=== PATIENT | female | born 1935 ===

== ENCOUNTER 2017-03-10 20:35 | Inpatient (IN) | payer OTHER ==
--- NOTE | 2017-03-10 21:40 | C.PDOC ---
History Of Present Illness 81 year old female is brought to the ED by ambulance accompanied by daughter for evaluation after syncopal episode at home. Patient admits she felt weak and slightly slipped on to the floor. As per daughter patient was standing in the kitchen washing dishes when she suddenly felt weak and passed out. Daughter found the patient unconscious on the floor, according to her it lasted only a few seconds and patient woke up fully conscious. Patient reports having cold like symptoms for the past few days associated with nasal congestion, cough, and today presents c/o mild nausea, weakness and a mild headache. Otherwise, Patient denies head injury, severe headache, fever, dizziness, visual changes, focal deficits, CP, palpitations, abdominal pain, vomit diarrhea incontinence. Time Seen by Provider: 03/10/17 21:14 Chief Complaint (Nursing): Cough, Cold, Congestion History Per: Patient, EMS, Family History/Exam Limitations: no limitations Onset/Duration Of Symptoms: Hrs Current Symptoms Are (Timing): Gone Recent travel outside of the [place]: No Additional History Per: Patient, Family Past Medical History Reviewed: Historical Data, Nursing Documentation, Vital Signs Vital Signs: Last Vital Signs Temp 97.8 F 03/10/17 23:19 Pulse 100 H 03/10/17 23:19 Resp 18 03/10/17 23:19 BP 157/77 H 03/10/17 23:19 Pulse Ox 96 03/10/17 23:38 - Medical History PMH: Diabetes, HTN Surgical History: Appendectomy - [facility] Procedures CATARAC PHACOEMULS/ASPIR (09/13/12) INSERT LENS AT CATAR EXT (09/13/12) Family History: States: Unknown Family Hx - Social History Hx Alcohol Use: No Hx Substance Use: No - Immunization History Hx Tetanus Toxoid Vaccination: No Hx Influenza Vaccination: No Hx Pneumococcal Vaccination: No Review Of Systems Constitutional: Negative for: Fever, Chills Eyes: Negative for: Vision Change Cardiovascular: Negative for: Chest Pain, Palpitations Respiratory: Negative for: Shortness of Breath Gastrointestinal: Positive for: Nausea. Negative for: Vomiting, Abdominal Pain Genitourinary: Negative for: Incontinence Skin: Negative for: Rash Neurological: Positive for: Weakness, Headache (Mild). Negative for: Numbness, Change in Speech, Dizziness Physical Exam - Physical Exam Appears: Non-toxic, No Acute Distress Skin: Normal Color, Warm, Dry Head: Normacephalic Eye(s): bilateral: Normal Inspection, PERRL, EOMI Nose: No Discharge, No Deformity Oral Mucosa: Moist, No Drooling Neck: Normal ROM, Trachea Midline, Supple Chest: Symmetrical Cardiovascular: Rhythm Regular, No Murmur Respiratory: Normal Breath Sounds, No Rales, No Rhonchi, No Wheezing Gastrointestinal/Abdominal: Soft, No Tenderness, No Guarding, No Rebound Extremity: Normal ROM, No Calf Tenderness, No Deformity, No Swelling Neurological/Psych: Oriented x3, Normal Speech, Normal Cognition, Normal Motor, Normal Sensation, Other (No focal deficits ) ED Course And Treatment - Laboratory Results Result Diagrams: 03/10/17 22:02 03/10/17 22:02 ECG: Interpreted By Me (and ED attending) Interpretation Of ECG: SR@95/min, NAD, prolong QT, no acute ST-T changes. O2 Sat by Pulse Oximetry: 96 (On RA) Pulse Ox Interpretation: Normal - Radiology CXR: Interpreted by Me, Viewed By Me CXR Interpretation: Yes: No Acute Disease - CT Scan/US CT head w/o contrast Other Rad Studies (CT/US): Radiology Report Reviewed CT/US Interpretation: [facility]. [facility] Division of Radiology. [address] [place] [address]. Tel. no. . . . Patient Name: HERBER LAWRENCE . Pt. Address: [address] [place] [address] Rec #: [id number]. [place] [address]: Vera Nogueira. Pt Order Location: [facility] : 1935 Female Age: 81 Order #: [id number]. Reason for exam: AMS. . . . . . CT Scan. . . HEAD W/O CONTRAST Exam Date: 03/10/17. . This imaging exam was performed at [facility]. EXAM: CT Head Without Intravenous Contrast. . CLINICAL HISTORY: 81 years old, female; Signs and symptoms; Altered mental status/memory loss;. Confusion or disorientation; Additional info: AMS. . TECHNIQUE: Axial computed tomography images of the head/brain without intravenous. contrast. All CT scans at this facility use one or more dose reduction. techniques, viz. : automated exposure control; ma/kV adjustment per patient size. (including targeted exams where dose is matched to indication; i.e. head); or. iterative reconstruction technique. Coronal and sagittal reformatted images were created and reviewed. . COMPARISON: No relevant prior studies available. . . FINDINGS: Brain: No acute intracranial hemorrhage. Age-appropriate periventricular. white matter disease. No edema. Ventricles: Age-appropriate ventriculomegaly. Bones: No acute displaced fracture. Sinuses: Unremarkable as visualized. No acute sinusitis. Mastoid air cells: Unremarkable as visualized. No mastoid effusion. . IMPRESSION: No acute intracranial hemorrhage, or suspicious mass effect. . . Dictated By: Luisa Green MD. Dictated Date/Time: 03/10/172237. Signed By: Luisa Green MD. Date Signed: 03/10/172237. Transcribed By: [facility]. Transcribe Date/Time: 03/10/172237. HUBER/CAROL Progress Note: Pt was OBS in ED for 2 hours and remained hemdoynamicaly stable. On re-eval, pt unchanged. Case discussed with and admission arranged to tele with Dx: Syncope. Disposition - Disposition Disposition: HOSPITALIZED Disposition Time: 23:17 Condition: STABLE - Clinical Impression Clinical Impression: Syncope - PA / WOOD ROOM HAND / Resident Statement MD/DO has reviewed & agrees with the documentation as recorded. - Scribe Statement The provider has reviewed the documentation as recorded by the Scribe Fareed Vargas All medical record entries made by the Scribe were at my direction and personally dictated by me. I have reviewed the chart and agree that the record accurately reflects my personal performance of the history, physical exam, medical decision making, and the department course for this patient. I have also personally directed, reviewed, and agree with the discharge instructions and disposition.
[2017-03-10] MEDS ORDERED: Lactated Ringer's 1,000 ML IV STA (21:49)
[2017-03-10 22:07] LABS: BASO # 0.1 K/uL (0.0-0.2); BASO % 1.2 % (0.0-2.0); EOS # 0.1 K/uL (0.0-0.7); EOS % 0.5 % (0.0-4.0); HEMATOCRIT 40.9 % (34.0-47.0); LYMPH # 1.3 K/uL (1.0-4.3); LYMPH % 11.6 % (20.0-40.0); MEAN CELL VOLUME 89.1 fL (81.0-99.0); MEAN CORPUSCULAR HEMOGLOBIN 29.6 pg (27.0-31.0); MEAN CORPUSCULAR HGB CONC 33.2 g/dL (33.0-37.0); MEAN PLATELET VOLUME 10.7 fL (7.2-11.7); MONO # 0.6 K/uL (0.0-0.8); MONO % 5.1 % (0.0-10.0); NRBC % 0.1 % (0.0-2.0); RED CELL DISTRIBUTION WIDTH 14.2 % (11.5-14.5); WHITE BLOOD COUNT 11.2 K/uL (4.8-10.8)
[2017-03-10 22:15] LABS: RBC URINE 1 /hpf (0-3); TRANSITIONAL EPITHIAL < 1 /hpf (0-3); URINE BACTERIA OCC (<OCC); URINE BILIRUBIN NEGATIVE (NEGATIVE); URINE BLOOD NEGATIVE (NEGATIVE); URINE COLOR Yellow (YELLOW); URINE GLUCOSE (UA) NORMAL (Normal); URINE KETONE TRACE mg/dL (NEGATIVE); URINE LEUKOCYTE ESTERASE 1+ Leu/uL (Negative); URINE PROTEIN NEGATIVE (NEGATIVE); URINE UROBILINOGEN NORMAL mg/dL (0.2-1.0); WBC URINE 11 /hpf (0-5)
[2017-03-10 22:16] LABS: VENOUS BLOOD GAS BASE EXCESS -7.5 mmol/L (0.0-2.0); VENOUS BLOOD GAS PCO2 37 mmHg (40-60)
[2017-03-10 22:30] LABS: ALKALINE PHOSPHATASE 103 U/L (38-126); ALT/SGPT 35 U/L (9-52); AST/SGOT 38 U/L (14-36); BILIRUBIN,TOTAL 1.3 mg/dL (0.2-1.3); CALCIUM 8.4 mg/dl (8.6-10.4); CARBON DIOXIDE 24 mmol/L (22-30); CHLORIDE 97 mmol/L (98-107); GFR AFRICAN-AMERICAN > 60; GLUCOSE,RANDOM 180 mg/dL (65-105); POTASSIUM 3.9 mmol/L (3.6-5.2); SODIUM 132 mmol/L (132-148); TOTAL PROTEIN 8.6 g/dL (6.3-8.3)
[2017-03-10 22:37] LABS: BLOOD UREA NITROGEN 13 mg/dL (7-17)
--- NOTE | 2017-03-10 22:39 | CT ---
EXAM: CT Head Without Intravenous Contrast CLINICAL HISTORY: 81 years old, female; Signs and symptoms; Altered mental status/memory loss; Confusion or disorientation; Additional info: AMS TECHNIQUE: Axial computed tomography images of the head/brain without intravenous contrast. All CT scans at this facility use one or more dose reduction techniques, viz.: automated exposure control; ma/kV adjustment per patient size (including targeted exams where dose is matched to indication; i.e. head); or iterative reconstruction technique. Coronal and sagittal reformatted images were created and reviewed. COMPARISON: No relevant prior studies available. FINDINGS: Brain: No acute intracranial hemorrhage. Age-appropriate periventricular white matter disease. No edema. Ventricles: Age-appropriate ventriculomegaly. Bones: No acute displaced fracture. Sinuses: Unremarkable as visualized. No acute sinusitis. Mastoid air cells: Unremarkable as visualized. No mastoid effusion. IMPRESSION: No acute intracranial hemorrhage, or suspicious mass effect.
--- NOTE | 2017-03-11 01:34 | CP.PCM.HP ---
History of Present Illness - History of Present Illness History of Present Illness: CC: syncopal episode Patient is an 81 y/o F with PMHx of DM, HTN, HLD who presents today for syncopal episode. Patient was feeling fine during the day and then became dizzy for about 10-15 minutes while doing the dishes. Patient started to slump toward the ground and lost consciousness for a few seconds but daughter caught her fall. Patient did not hit her head. Daughter said that patient was unconscious for only a few seconds after which she was not confused. She was not incontinent of urine or feces. After the syncopal episode patient had some nausea. Daughter immediately called the ambulance. Patient says this has never happened to her before. In the past few days patient has had a cold and been taking an OTC decongestant and Tylenol. She has a cough with no phlegm and no sore throat. She also admits to nasal congestion. She has had no fevers. Patient also denies headache, shortness of breath, abdominal pain, vomiting, constipation, or diarrhea. Patient denies problems with urinating. Currently patient denies any dizziness and says she is feeling better. PMH: DM, HTN, HLD PSH: Appendectomy (at age 18), Cataracts Family History: HTN, mother had possible [place] Medications: Losartan, Janumet, Atorvastatin, ASA Allergies: Penicillin Social: Denies tobacco, alcohol, drug use. Patient lives with daughter, but is able to perform ADLs alone Present on Admission - Present on Admission Any Indicators Present on Admission: No History of DVT/PE: No History of Uncontrolled Diabetes: No Urinary Catheter: No Decubitus Ulcer Present: No Review of Systems - Constitutional Constitutional: absent: Fatigue, Headache - EENT Eyes: absent: Blurred Vision - Cardiovascular Cardiovascular: Syncope. absent: Chest Pain, Leg Edema, Palpitations - Respiratory Respiratory: absent: Cough, Wheezing, Stridor - Gastrointestinal Gastrointestinal: Nausea. absent: Constipation, Diarrhea, Vomiting - Genitourinary Genitourinary: absent: Difficulty Urinating, Dysuria, Hematuria - Musculoskeletal Musculoskeletal: absent: Numbness, Tingling - Integumentary Integumentary: absent: Rash - Neurological Neurological: Syncope. absent: Dizziness - Hematologic/Lymphatic Hematologic: absent: Easy Bleeding, Easy Bruising Past Patient History - Past Social History Smoking Status: Never Smoked - CARDIAC Hx Hypertension: Yes - ENDOCRINE/METABOLIC Hx Diabetes Mellitus Type 2: Yes - PSYCHIATRIC Hx Substance Use: No - SURGICAL HISTORY Hx Appendectomy: Yes Meds Allergies/Adverse Reactions: Allergies Allergy/AdvReac Type Severity Reaction Status Date / Time Penicillins Allergy Verified 03/10/17 20:44 Physical Exam - Constitutional Appears: Well, Non-toxic, No Acute Distress - Head Exam Head Exam: ATRAUMATIC, NORMAL INSPECTION, NORMOCEPHALIC - Eye Exam Eye Exam: EOMI, Normal appearance - ENT Exam ENT Exam: Mucous Membranes Moist - Respiratory Exam Respiratory Exam: Clear to Auscultation Bilateral, NORMAL BREATHING PATTERN. absent: Rales, Rhonchi, Wheezes, Respiratory Distress, Stridor - Cardiovascular Exam Cardiovascular Exam: Tachycardia, REGULAR RHYTHM, +S1, +S2 - GI/Abdominal Exam GI & Abdominal Exam: Normal Bowel Sounds, Soft. absent: Tenderness - Extremities Exam Extremities exam: Positive for: normal inspection. Negative for: pedal edema, tenderness - Neurological Exam Neurological exam: Alert, Oriented x3 - Psychiatric Exam Psychiatric exam: Normal Affect, Normal Mood - Skin Skin Exam: Intact, Normal Color, Warm Results - Vital Signs Recent Vital Signs: Last Vital Signs Temp 97.8 F 03/10/17 23:19 Pulse 100 H 03/10/17 23:19 Resp 18 03/10/17 23:19 BP 157/77 H 03/10/17 23:19 Pulse Ox 96 03/10/17 23:38 - Labs Result Diagrams: 03/10/17 22:02 03/10/17 22:02 Labs: Laboratory Results - last 24 hr 03/10/17 03/10/17 03/10/17 22:02 22:02 22:02 WBC 11.2 H RBC 4.58 Hgb 13.6 Hct 40.9 MCV 89.1 D MCH 29.6 MCHC 33.2 RDW 14.2 Plt Count 230 MPV 10.7 Neut % (Auto) 81.6 H Lymph % (Auto) 11.6 L [place] % (Auto) 5.1 Eos % (Auto) 0.5 Baso % (Auto) 1.2 Neut # 9.1 H Lymph # 1.3 [place] # 0.6 Eos # 0.1 Baso # 0.1 PT 11.0 INR 1.0 APTT 25 pO2 VBG pH VBG pCO2 VBG HCO3 VBG Total CO2 VBG O2 Sat (Calc) VBG Base Excess VBG Potassium Glucose Lactate FiO2 Crit Value Called To Crit Value Called By Crit Value Read Back Blood Gas Notified Time Sodium Potassium Chloride Carbon Dioxide Anion Gap BUN Creatinine Est GFR ( Amer) Est GFR (Non-Af Amer) Random Glucose Calcium Total Bilirubin AST ALT Alkaline Phosphatase Troponin I Total Protein Albumin Globulin Albumin/Globulin Ratio Venous Blood Potassium Urine Color Yellow Urine Clarity Clear Urine pH 6.0 Ur Specific [place] 1.013 Urine Protein Negative Urine Glucose (UA) Normal Urine Ketones Trace Urine Blood Negative Urine Nitrate Negative Urine Bilirubin Negative Urine Urobilinogen Normal Ur Leukocyte Esterase 1+ H Urine WBC (Auto) 11 H Urine RBC (Auto) 1 Ur Squamous Epith Cells 3 Ur Transition Epith Cell < 1 Urine Bacteria Occ H 03/10/17 03/10/17 22:02 22:10 WBC RBC Hgb Hct MCV MCH MCHC RDW Plt Count MPV Neut % (Auto) Lymph % (Auto) [place] % (Auto) Eos % (Auto) Baso % (Auto) Neut # Lymph # [place] # Eos # Baso # PT INR APTT pO2 20 L VBG pH 7.30 L VBG pCO2 37 L VBG HCO3 17.1 VBG Total CO2 19.3 L VBG O2 Sat (Calc) 47.0 VBG Base Excess -7.5 L VBG Potassium 1.9 L* Glucose 132 H Lactate 1.3 FiO2 21.0 Crit Value Called To Dr goins Crit Value Called By Naun caraballo Crit Value Read Back Y Blood Gas Notified Time 2215 Sodium 132 148.0 Potassium 3.9 Chloride 97 L 121.0 H Carbon Dioxide 24 Anion Gap 15 BUN 13 Creatinine 0.9 Est GFR ( Amer) > 60 Est GFR (Non-Af Amer) > 60 Random Glucose 180 H Calcium 8.4 L Total Bilirubin 1.3 AST 38 H ALT 35 Alkaline Phosphatase 103 Troponin I < 0.0120 Total Protein 8.6 H Albumin 4.4 Globulin 4.2 H Albumin/Globulin Ratio 1.0 Venous Blood Potassium 1.9 L* Urine Color Urine Clarity Urine pH Ur Specific [place] Urine Protein Urine Glucose (UA) Urine Ketones Urine Blood Urine Nitrate Urine Bilirubin Urine Urobilinogen Ur Leukocyte Esterase Urine WBC (Auto) Urine RBC (Auto) Ur Squamous Epith Cells Ur Transition Epith Cell Urine Bacteria Assessment & Plan - Assessment and Plan (Free Text) Assessment: Syncopal episode Head CT: no acute intracranial hemmorhage or suspicious mass effect f/u TSH F/U ECHO F/U carotid dopplers Leukocytosis WBC: 11.2 UA: 1+ leuk esterase, 11 wbc, occasional bacteria f/u urine and blood culture HTN Losartan at home, please confirm dose in am continue to monitor DM Janumet at home, please confirm dose in am accuchecks f/u HgA1C HLD Atorvastatin at home, please confirm dose in am f/u lipid panel Prophylaxis DVT: SCDs GI: Pepcid 20mg po daily
--- NOTE | 2017-03-11 08:26 | RAD ---
HISTORY: r/o infiltrates COMPARISON: No prior. TECHNIQUE: Chest PA and lateral FINDINGS: LUNGS: 05/18/2012 PLEURA: No significant pleural effusion identified. No pneumothorax apparent. CARDIOVASCULAR: Heart size normal. The relative prominence of the aortic knob is similar. OSSEOUS STRUCTURES: Bilateral glenohumeral hypertrophic arthrosis left greater than right. Scoliosis -unchanged VISUALIZED UPPER ABDOMEN: Normal. OTHER FINDINGS: None. IMPRESSION: No active disease.
[2017-03-11 08:29] LABS: BASO # 0.1 K/uL (0.0-0.2); BASO % 0.9 % (0.0-2.0); EOS # 0.1 K/uL (0.0-0.7); EOS % 0.9 % (0.0-4.0); HEMATOCRIT 37.5 % (34.0-47.0); LYMPH # 1.8 K/uL (1.0-4.3); LYMPH % 28.5 % (20.0-40.0); MEAN CELL VOLUME 88.2 fL (81.0-99.0); MEAN CORPUSCULAR HEMOGLOBIN 30.3 pg (27.0-31.0); MEAN CORPUSCULAR HGB CONC 34.3 g/dL (33.0-37.0); MONO # 0.6 K/uL (0.0-0.8); MONO % 9.1 % (0.0-10.0); WHITE BLOOD COUNT 6.2 K/uL (4.8-10.8)
[2017-03-11 08:42] LABS: ALB/GLOB RATIO 0.9 (1.0-2.1); ALKALINE PHOSPHATASE 86 U/L (38-126); ALT/SGPT 37 U/L (9-52); AST/SGOT 24 U/L (14-36); BILIRUBIN,TOTAL 0.7 mg/dL (0.2-1.3); BLOOD UREA NITROGEN 11 mg/dL (7-17); CALCIUM 8.3 mg/dl (8.6-10.4); CARBON DIOXIDE 29 mmol/L (22-30); CHLORIDE 98 mmol/L (98-107); CHOLESTEROL 137 mg/dL (0-199); GFR AFRICAN-AMERICAN > 60; GLUCOSE,RANDOM 119 mg/dL (65-105); MAGNESIUM 1.6 mg/dL (1.6-2.3); POTASSIUM 3.3 mmol/L (3.6-5.2); SODIUM 131 mmol/L (132-148); TOTAL PROTEIN 8.2 g/dL (6.3-8.3)
[2017-03-11 09:07] LABS: PHOSPHOROUS 2.5 mg/dL (2.5-4.5)
[2017-03-11 09:09] LABS: THYROID STIMULATING HORMONE 1.29 mIU/L (0.46-4.68)
--- NOTE | 2017-03-11 13:49 | VASCLAB ---
PROCEDURE: HISTORY: syncopal episode COMPARISON: None available. TECHNIQUE: Grayscale and duplex Doppler evaluation of the cervical carotid and vertebral arteries were performed. The common carotid, carotid bifurcations and cervical Internal Carotid Artery (ICA) and proximal External Carotid Artery (ECA) were evaluated. The vertebral arteries were evaluated for gross patency and flow direction. Report prepared by Sanjay Manzanares, BS, RVT FINDINGS: RIGHT CAROTID ARTERIES: 1. Common Carotid Artery: No significant focal plaque formation of the right common carotid artery. Maximum Peak Systolic velocity: 83 cm/sec: End-diastolic velocity 22 cm/sec. 2. Carotid Bifurcation: Homogeneous plaque formation. Maximum Peak Systolic velocity: 119 cm/sec: End-diastolic velocity 28 cm/sec. 3. Internal Carotid Artery: Mild plaque formation of the right proximal proximal ICA which does not results in a hemodynamically significant stenosis. Plaque description: Homogeneous 3.1. Proximal Segment: Peak systolic velocity 141 cm/sec: End-diastolic velocity 38 cm/sec - % stenosis 16-49% 3.2. Middle Segment: Peak systolic velocity 110 cm/sec: End-diastolic velocity 30 cm/sec - % stenosis 0-15% 3.3. Distal Segment: Peak systolic velocity 87 cm/sec: End-diastolic velocity 24 cm/sec - % stenosis 0-15% 4. External Carotid Artery: No significant focal plaque formation. Peak systolic velocity 219 cm/sec 5. ICA/CCA Ratio: 1.7 LEFT CAROTID ARTERIES: 1. Common Carotid Artery: No significant focal plaque formation of the left common carotid artery. Maximum Peak Systolic velocity: 99 cm/sec: End-diastolic velocity 23 cm/sec. 2. Carotid Bifurcation: Homogeneous plaque formation. Maximum Peak Systolic velocity: 121 cm/sec: End-diastolic velocity 24 cm/sec. 3. Internal Carotid Artery: Moderate plaque formation of the left proximal ICA which results in hemodynamically significant stenosis. Plaque description: Homogeneous 3.1. Proximal Segment: Peak systolic velocity 203 cm/sec: End-diastolic velocity 36 cm/sec - % stenosis 50-60% 3.2. Middle Segment: Peak systolic velocity 116 cm/sec: End-diastolic velocity 29 cm/sec - % stenosis 0-15% 3.3. Distal Segment: Peak systolic velocity 111 cm/sec: End-diastolic velocity 29 cm/sec - % stenosis 0-15% 4. External Carotid Artery: No significant focal plaque formation. Peak systolic velocity 222 cm/sec 5. ICA/CCA Ratio: 2.0 VERTEBRAL ARTERIES: 1. Right Vertebral Artery: The right vertebral artery flow direction is antegrade. 2. Left Vertebral Artery: The left vertebral artery flow direction is antegrade. OTHER FINDINGS: 1. Right Brachial Blood pressure: 174 mmHg. 2. Left Brachial Blood pressure: 160 mmHg. IMPRESSION: RIGHT: 16-49% stenosis of the right proximal ICA with minimal hemodynamic significance. LEFT: 50-60% stenosis of the left proximal ICA with mild hemodynamic significance.
[2017-03-11] MEDS ORDERED: Magnesium Sulfate 1 gm in D5W 1 GM/100 ML BAG IVPB ONE (14:00)
[2017-03-11] MEDS ORDERED: Potassium Chloride 20 mEq ER Tab PO ONE (14:00)
--- NOTE | 2017-03-11 15:06 | CP.PCM.PN ---
Subjective - Date & Time of Evaluation Date of Evaluation: 03/11/17 Time of Evaluation: 07:55 - Subjective Subjective: Medicine note ( PGY-1)----> Dr. Fiore's service Patient was seen and examined at bedside. Patient's daughter was at bedside. Patient reports that she is doing well and has no complaints. Patient denies chest pain, SOB, palpitations, nausea, vomiting, dizziness, fever, chills, headache and blurry vision. Objective - Vital Signs/Intake and Output Vital Signs (last 24 hours): Temp Pulse Resp BP Pulse Ox 98.2 F 91 H 20 146/72 96 03/11/17 07:30 03/11/17 07:30 03/11/17 07:30 03/11/17 07:30 03/11/17 07:30 - Medications Medications: Current Medications Famotidine (Pepcid) 20 mg PO DAILY EDIE Last Admin: 03/11/17 10:08 Dose: 20 mg Insulin Aspart (Novolog) 0 unit SC ACHS EDIE PRN Reason: Protocol - Labs Labs: 03/11/17 08:22 03/11/17 08:22 PT 11.0 SECONDS (9.7-12.2) 03/10/17 22:02 INR 1.0 03/10/17 22:02 APTT 25 SECONDS (21-34) 03/10/17 22:02 - Constitutional Appears: Well, No Acute Distress - Head Exam Head Exam: ATRAUMATIC, NORMAL INSPECTION - Eye Exam Eye Exam: EOMI - ENT Exam ENT Exam: Mucous Membranes Moist - Respiratory Exam Respiratory Exam: Clear to Ausculation Bilateral, NORMAL BREATHING PATTERN - Cardiovascular Exam Cardiovascular Exam: REGULAR RHYTHM, +S1, +S2 - GI/Abdominal Exam GI & Abdominal Exam: Soft, Normal Bowel Sounds - Extremities Exam Extremities Exam: Normal Inspection. absent: Calf Tenderness, Pedal Edema - Neurological Exam Neurological Exam: Alert, Awake, Oriented x3 - Psychiatric Exam Psychiatric exam: Normal Affect, Normal Mood - Skin Skin Exam: Normal Color Assessment and Plan (1) Syncope Assessment & Plan: Imaging: Head CT: No acute intracranial hemorrhage or suspicious mass effect Chest X-ray: No active disease Carotid doppler: Right: 16-44% stenosis of the right proximal ICA with minimal hemodynamic significance Left: 50-60% stenois of the left proximal ICA with mild hemodynamic significance F/u orthostatic vitals Labs: Lipid panel: T, Chol: 137, LDL:77, HDL: 45 TSH (3rd generation): 1.29 HgbA1C: 7.3 Status: Acute (2) History of diabetes mellitus Assessment & Plan: HgbA1c: 7.3 Accuchecks Glipizide 2mg PO daily ISS low dose Hypoglycemia protocol Status: Acute (3) History of hypothyroidism Assessment & Plan: TSH (3rd generation): 1.29 Continue home medications: * Levothyroxine 50mcg PO daily Status: Acute (4) History of hypertension Assessment & Plan: Continue home medication: * HCTZ 25mg Po daily * Lorsatan 100mg Po daily ( Held) Status: Acute (5) Prophylactic measure Assessment & Plan: DVT: SCDs GI: Pepcid 20mg po daily All plans and management discussed with Dr. Fiore Status: Acute
[2017-03-11] MEDS: (Novolog) Insulin Aspart, Recombinant 100 u/ml 10 ml vial SC SCH ×2 (17:53→21:33)
--- NOTE | 2017-03-11 21:42 | CARD ---
APPROVED REPORT EXAM: Two-dimensional and M-mode echocardiogram with Doppler and color Doppler. Other Information Quality : GoodRhythm : INDICATION Syncope RISK FACTORS Hypertension Hyperlipidemia Diabetes 2D DIMENSIONS IVSd1.0 (0.7-1.1cm)LVDd3.1 (3.9-5.9cm) PWd0.9 (0.7-1.1cm)LVDs2.0 (2.5-4.0cm) FS (%) 35.6 %LVEF (%)66.6 (>50%) M-Mode DIMENSIONS RVDd1.35 (2.1-3.2cm)Left Atrium (MM)2.84 (2.5-4.0cm) IVSd0.81 (0.7-1.1cm)Aortic Root2.65 (2.2-3.7cm) LVDd3.90 (4.0-5.6cm)Aortic Cusp Exc.1.69 (1.5-2.0cm) PWd0.78 (0.7-1.1cm)FS (%) 51 % LVDs1.93 (2.0-3.8cm)LVEF (%)83 (>50%) Aortic Valve AI P 1/2 [id number] Mitral Valve MV E Owiadrpr31.3cm/sMV A Nrrupwik259.0cm/sE/A ratio0.7 TDI E/Lateral E'0.0E/Medial E'0.0 Tricuspid Valve TR Peak Orowtvui767si/sTR Peak Gr.[id number] LEFT VENTRICLE The left ventricle is normal size. There is normal left ventricular wall thickness. The left ventricular function is normal. The left ventricular ejection fraction is within the normal range. About70% No regional wall motion abnormalities noted. The left ventricular diastolic function is normal. No left ventricle thrombus noted on this study. There is no ventricular septal defect visualized. There is no left ventricular aneurysm. There is no mass noted in the left ventricle. RIGHT VENTRICLE The right ventricle is normal size. There is normal right ventricular wall thickness. The right ventricular systolic function is normal. ATRIA The left atrium size is normal. The right atrium size is normal. The interatrial septum is intact with no evidence for an atrial septal defect. AORTIC VALVE The aortic valve is normal in structure and function. Mild aortic regurgitation is present. There is no aortic valvular stenosis. There is no aortic valvular vegetation. MITRAL VALVE The mitral valve is normal in structure and function. There is no evidence of mitral valve prolapse. There is no mitral valve stenosis. There is trace mitral valve regurgitation noted. TRICUSPID VALVE The tricuspid valve is normal in structure and function. There is mild tricuspid valve regurgitation noted. Estimated PA systolic presure is 35 mm Hg There is no tricuspid valve prolapse or vegetation. There is no tricuspid valve stenosis. PULMONIC VALVE The pulmonary valve is normal in structure and function. There is no pulmonic valvular regurgitation. There is no pulmonic valvular stenosis. GREAT VESSELS The aortic root is normal in size. The ascending aorta is normal in size. The pulmonary artery is normal. The IVC is normal in size and collapses >50% with inspiration. PERICARDIAL EFFUSION The pericardium appears normal. There is no pleural effusion. <Conclusion> Normal LV systolic function. Mild aortic regurgitation.
--- NOTE | 2017-03-11 21:45 | CARD ---
APPROVED REPORT EKG Measurement Heart [id number] <Conclusion> Normal sinus rhythm Nonspecific ST and T wave abnormality Prolonged QT Abnormal ECG
[2017-03-12] MEDS: Levothyroxine 50 MCG TAB PO SCH (06:01)
[2017-03-12 07:01] LABS: ALB/GLOB RATIO 1.1 (1.0-2.1); ALKALINE PHOSPHATASE 80 U/L (38-126); ALT/SGPT 32 U/L (9-52); AST/SGOT 25 U/L (14-36); BILIRUBIN,TOTAL 0.9 mg/dL (0.2-1.3); BLOOD UREA NITROGEN 14 mg/dL (7-17); CALCIUM 8.1 mg/dl (8.6-10.4); CARBON DIOXIDE 30 mmol/L (22-30); CHLORIDE 101 mmol/L (98-107); GFR AFRICAN-AMERICAN > 60; GLUCOSE,RANDOM 170 mg/dL (65-105); MAGNESIUM 1.7 mg/dL (1.6-2.3); PHOSPHOROUS 2.3 mg/dL (2.5-4.5); POTASSIUM 4.2 mmol/L (3.6-5.2); SODIUM 137 mmol/L (132-148)
[2017-03-12 08:11] LABS: BASO % 0.6 % (0.0-2.0); EOS # 0.3 K/uL (0.0-0.7); EOS % 3.7 % (0.0-4.0); HEMATOCRIT 39.2 % (34.0-47.0); LYMPH # 3.2 K/uL (1.0-4.3); LYMPH % 39.6 % (20.0-40.0); MEAN CELL VOLUME 88.7 fL (81.0-99.0); MEAN CORPUSCULAR HEMOGLOBIN 29.8 pg (27.0-31.0); MEAN CORPUSCULAR HGB CONC 33.6 g/dL (33.0-37.0); MONO # 0.7 K/uL (0.0-0.8); MONO % 9.1 % (0.0-10.0); NRBC % 0.5 % (0.0-2.0); WHITE BLOOD COUNT 8.1 K/uL (4.8-10.8)
[2017-03-12] MEDS: (Novolog) Insulin Aspart, Recombinant 100 u/ml 10 ml vial SC SCH ×4 (08:30→21:38)
--- NOTE | 2017-03-12 18:39 | CP.PCM.PN ---
Subjective - Date & Time of Evaluation Date of Evaluation: 03/12/17 Time of Evaluation: 07:35 - Subjective Subjective: Medicine note ( PGY-1)----> Dr. Fiore's service Patient was seen and examined at bedside. Patient reports that she is doing well and has no complaints. Patient denies chest pain, SOB, palpitations, nausea , vomiting, dizziness, fever, chills, headache and blurry vision. Patient is tolerating diet and ambulating. Objective - Vital Signs/Intake and Output Vital Signs (last 24 hours): Temp Pulse Resp BP Pulse Ox 98 F 85 18 116/66 98 03/12/17 15:33 03/12/17 16:00 03/12/17 15:33 03/12/17 15:33 03/12/17 15:33 - Medications Medications: Current Medications Aspirin (Aspirin Chewable) 81 mg PO DAILY [facility] Last Admin: 03/12/17 09:49 Dose: 81 mg Famotidine (Pepcid) 20 mg PO DAILY [facility] Last Admin: 03/12/17 09:51 Dose: 20 mg Glimepiride (Amaryl) 2 mg PO DAILY [facility] Last Admin: 03/12/17 09:49 Dose: 2 mg Hydrochlorothiazide (Hydrodiuril) 25 mg PO DAILY [facility] Last Admin: 03/12/17 09:50 Dose: Not Given Insulin Aspart (Novolog) 0 unit SC [facility] PRN Reason: Protocol Last Admin: 03/12/17 17:37 Dose: 1 unit Levothyroxine Sodium (Synthroid) 50 mcg PO DAILY@0630 [facility] Last Admin: 03/12/17 06:01 Dose: 50 mcg Rosuvastatin Calcium (Crestor) 10 mg PO HS [facility] Last Admin: 03/11/17 21:12 Dose: 10 mg - Labs Labs: 03/12/17 06:42 03/12/17 06:42 PT 11.0 SECONDS (9.7-12.2) 03/10/17 22:02 INR 1.0 03/10/17 22:02 APTT 25 SECONDS (21-34) 03/10/17 22:02 - Constitutional Appears: Well, No Acute Distress - Head Exam Head Exam: ATRAUMATIC - Eye Exam Eye Exam: EOMI, Normal appearance - ENT Exam ENT Exam: Mucous Membranes Moist - Respiratory Exam Respiratory Exam: Clear to Ausculation Bilateral, NORMAL BREATHING PATTERN - Cardiovascular Exam Cardiovascular Exam: REGULAR RHYTHM, +S1, +S2 - GI/Abdominal Exam GI & Abdominal Exam: Soft, Normal Bowel Sounds. absent: Tenderness - Extremities Exam Extremities Exam: Normal Inspection. absent: Calf Tenderness, Pedal Edema - Neurological Exam Neurological Exam: Alert, Awake, Oriented x3 - Psychiatric Exam Psychiatric exam: Normal Affect, Normal Mood - Skin Skin Exam: Normal Color Assessment and Plan (1) Syncope Assessment & Plan: Imaging: Head CT: No acute intracranial hemorrhage or suspicious mass effect Chest X-ray: No active disease Echo: Normal LV systolic dysfunction and mild aortic regurgitation. Ejection fraction is within normal range Carotid doppler: Right: 16-44% stenosis of the right proximal ICA with minimal hemodynamic significance Left: 50-60% stenois of the left proximal ICA with mild hemodynamic significance Orthostatic vitals: (Negative) Labs: Lipid panel: T, Chol: 137, LDL:77, HDL: 45 TSH (3rd generation): 1.29 HgbA1C: 7.3 Status: Acute (2) History of diabetes mellitus Assessment & Plan: HgbA1c: 7.3 Accuchecks Glipizide 2mg PO daily ISS low dose Hypoglycemia protocol Status: Acute (3) History of hypothyroidism Assessment & Plan: TSH (3rd generation): 1.29 Continue home medications: * Levothyroxine 50mcg PO daily Status: Acute (4) History of hypertension Assessment & Plan: Continue home medication: * HCTZ 25mg Po daily * Lorsatan 100mg Po daily ( Held) Status: Acute (5) Prophylactic measure Assessment & Plan: DVT: SCDs GI: Pepcid 20mg po daily All plans and management discussed with Dr. Fiore Status: Acute
[2017-03-13 02:37] VITALS: RESP 20
[2017-03-13] MEDS: Levothyroxine 50 MCG TAB PO SCH (06:15)
[2017-03-13 06:29] LABS: BASO # 0.1 K/uL (0.0-0.2); BASO % 0.9 % (0.0-2.0); EOS # 0.3 K/uL (0.0-0.7); EOS % 4.3 % (0.0-4.0); HEMATOCRIT 38.1 % (34.0-47.0); LYMPH # 2.7 K/uL (1.0-4.3); LYMPH % 37.9 % (20.0-40.0); MEAN CELL VOLUME 87.9 fL (81.0-99.0); MEAN CORPUSCULAR HGB CONC 34.1 g/dL (33.0-37.0); MONO # 0.6 K/uL (0.0-0.8); MONO % 8.2 % (0.0-10.0); NRBC % 0.1 % (0.0-2.0); RED CELL DISTRIBUTION WIDTH 13.7 % (11.5-14.5); WHITE BLOOD COUNT 7.1 K/uL (4.8-10.8)
[2017-03-13 06:37] LABS: ALB/GLOB RATIO 0.9 (1.0-2.1); ALKALINE PHOSPHATASE 83 U/L (38-126); ALT/SGPT 38 U/L (9-52); AST/SGOT 30 U/L (14-36); BILIRUBIN,TOTAL 0.5 mg/dL (0.2-1.3); BLOOD UREA NITROGEN 17 mg/dL (7-17); CALCIUM 8.4 mg/dl (8.6-10.4); CARBON DIOXIDE 30 mmol/L (22-30); CHLORIDE 102 mmol/L (98-107); GFR AFRICAN-AMERICAN > 60; GLUCOSE,RANDOM 163 mg/dL (65-105); MAGNESIUM 1.6 mg/dL (1.6-2.3); PHOSPHOROUS 3.1 mg/dL (2.5-4.5); POTASSIUM 3.9 mmol/L (3.6-5.2); SODIUM 138 mmol/L (132-148); TOTAL PROTEIN 7.9 g/dL (6.3-8.3)
[2017-03-13] MEDS: (Novolog) Insulin Aspart, Recombinant 100 u/ml 10 ml vial SC SCH ×2 (07:10→12:35)
[2017-03-13 08:16] VITALS: PULSE 84
[2017-03-13 08:54] VITALS: BP 127/77; TEMP 98.7; O2SAT 98
--- NOTE | 2017-03-13 14:16 | CP.PCM.DIS ---
Provider - Provider Date of Admission: 03/10/17 23:38 Attending physician: Trell Fiore Jr, MD Time Spent in preparation of Discharge (in minutes): 35 Diagnosis - Discharge Diagnosis (1) Syncope Status: Acute (2) History of diabetes mellitus Status: Acute (3) History of hypothyroidism Status: Acute (4) History of hypertension Status: Acute (5) Prophylactic measure Status: Acute Hospital Course - Lab Results Lab Results: Micro Results 03/10/17 22:30 Blood Blood Culture - Preliminary NO GROWTH AFTER 48 HOURS 03/10/17 22:00 Blood Blood Culture - Preliminary NO GROWTH AFTER 48 HOURS 03/10/17 21:49 Urine Urine Culture - Final No Growth (<1,000 CFU/ML) Most Recent Lab Values WBC 7.1 K/uL (4.8-10.8) 03/13/17 06:11 RBC 4.33 Mil/uL (3.80-5.20) 03/13/17 06:11 Hgb 13.0 g/dL (11.0-16.0) 03/13/17 06:11 Hct 38.1 % (34.0-47.0) 03/13/17 06:11 MCV 87.9 fL (81.0-99.0) 03/13/17 06:11 MCH 30.0 pg (27.0-31.0) 03/13/17 06:11 MCHC 34.1 g/dL (33.0-37.0) 03/13/17 06:11 RDW 13.7 % (11.5-14.5) 03/13/17 06:11 Plt Count 217 K/uL (130-400) 03/13/17 06:11 MPV 11.0 fL (7.2-11.7) 03/13/17 06:11 Neut % (Auto) 48.7 % (50.0-75.0) L 03/13/17 06:11 Lymph % (Auto) 37.9 % (20.0-40.0) 03/13/17 06:11 [place] % (Auto) 8.2 % (0.0-10.0) 03/13/17 06:11 Eos % (Auto) 4.3 % (0.0-4.0) H 03/13/17 06:11 Baso % (Auto) 0.9 % (0.0-2.0) 03/13/17 06:11 Neut # 3.5 K/uL (1.8-7.0) 03/13/17 06:11 Lymph # 2.7 K/uL (1.0-4.3) 03/13/17 06:11 [place] # 0.6 K/uL (0.0-0.8) 03/13/17 06:11 Eos # 0.3 K/uL (0.0-0.7) 03/13/17 06:11 Baso # 0.1 K/uL (0.0-0.2) 03/13/17 06:11 PT 11.0 SECONDS (9.7-12.2) 03/10/17 22:02 INR 1.0 03/10/17 22:02 APTT 25 SECONDS (21-34) 03/10/17 22:02 D-Dimer, Quantitative 438 ng/mlDDU (0-243) H 03/11/17 11:59 pO2 20 mm/Hg (30-55) L 03/10/17 22:10 VBG pH 7.30 (7.32-7.43) L 03/10/17 22:10 VBG pCO2 37 mmHg (40-60) L 03/10/17 22:10 VBG HCO3 17.1 mmol/L 03/10/17 22:10 VBG Total CO2 19.3 mmol/L (22-28) L 03/10/17 22:10 VBG O2 Sat (Calc) 47.0 % (40-65) 03/10/17 22:10 VBG Base Excess -7.5 mmol/L (0.0-2.0) L 03/10/17 22:10 VBG Potassium 1.9 mmol/L (3.6-5.2) L* 03/10/17 22:10 Sodium 148.0 mmol/l (132-148) 03/10/17 22:10 Chloride 121.0 mmol/L (98-107) H 03/10/17 22:10 Glucose 132 mg/dl (65-105) H 03/10/17 22:10 Lactate 1.3 mmol/L (0.7-2.1) 03/10/17 22:10 FiO2 21.0 % 03/10/17 22:10 Crit Value Called To Dr goins 03/10/17 22:10 Crit Value Called By Naun caraballo 03/10/17 22:10 Crit Value Read Back Y 03/10/17 22:10 Blood Gas Notified Time 221403/10/17 22:10 Sodium 138 mmol/L (132-148) 03/13/17 06:11 Potassium 3.9 mmol/L (3.6-5.2) 03/13/17 06:11 Chloride 102 mmol/L (98-107) 03/13/17 06:11 Carbon Dioxide 30 mmol/L (22-30) 03/13/17 06:11 Anion Gap 10 (10-20) 03/13/17 06:11 BUN 17 mg/dL (7-17) 03/13/17 06:11 Creatinine 1.0 mg/dL (0.7-1.2) 03/13/17 06:11 Est GFR ( Amer) > 60 03/13/17 06:11 Est GFR (Non-Af Amer) 53 03/13/17 06:11 POC Glucose (mg/dL) 145 mg/dL (65-110) H 03/13/17 06:52 Random Glucose 163 mg/dL (65-105) H 03/13/17 06:11 Hemoglobin A1c 7.3 % (4.2-6.5) H 03/11/17 08:22 Calcium 8.4 mg/dl (8.6-10.4) L 03/13/17 06:11 Phosphorus 3.1 mg/dL (2.5-4.5) 03/13/17 06:11 Magnesium 1.6 mg/dL (1.6-2.3) 03/13/17 06:11 Total Bilirubin 0.5 mg/dL (0.2-1.3) 03/13/17 06:11 AST 30 U/L (14-36) 03/13/17 06:11 ALT 38 U/L (9-52) 03/13/17 06:11 Alkaline Phosphatase 83 U/L (38-126) 03/13/17 06:11 Troponin I < 0.0120 ng/mL (0.00-0.120) 03/10/17 22:02 Total Protein 7.9 g/dL (6.3-8.3) 03/13/17 06:11 Albumin 3.7 g/dL (3.5-5.0) 03/13/17 06:11 Globulin 4.1 gm/dL (2.2-3.9) H 03/13/17 06:11 Albumin/Globulin Ratio 0.9 (1.0-2.1) L 03/13/17 06:11 Triglycerides 96 mg/dL (0-149) 03/11/17 08:22 Cholesterol 137 mg/dL (0-199) 03/11/17 08:22 LDL Cholesterol Direct 77 mg/dL (0-129) 03/11/17 08:22 HDL Cholesterol 45 mg/dL (30-70) 03/11/17 08:22 TSH 3rd Generation 1.29 mIU/L (0.46-4.68) 03/11/17 08:22 Venous Blood Potassium 1.9 mmol/L (3.6-5.2) L* 03/10/17 22:10 Urine Color Yellow (YELLOW) 03/10/17 22:02 Urine Clarity Clear (Clear) 03/10/17 22:02 Urine pH 6.0 (5.0-8.0) 03/10/17 22:02 Ur Specific [place] 1.013 (1.003-1.030) 03/10/17 22:02 Urine Protein Negative mg/dL (NEGATIVE) 03/10/17 22:02 Urine Glucose (UA) Normal mg/dL (Normal) 03/10/17 22:02 Urine Ketones Trace mg/dL (NEGATIVE) 03/10/17 22:02 Urine Blood Negative (NEGATIVE) 03/10/17 22:02 Urine Nitrate Negative (NEGATIVE) 03/10/17 22:02 Urine Bilirubin Negative (NEGATIVE) 03/10/17 22:02 Urine Urobilinogen Normal mg/dL (0.2-1.0) 03/10/17 22:02 Ur Leukocyte Esterase 1+ Yuliya/uL (Negative) H 03/10/17 22:02 Urine WBC (Auto) 11 /hpf (0-5) H 03/10/17 22:02 Urine RBC (Auto) 1 /hpf (0-3) 03/10/17 22:02 Ur Squamous Epith Cells 3 /hpf (0-5) 03/10/17 22:02 Ur Transition Epith Cell < 1 /hpf (0-3) 03/10/17 22:02 Urine Bacteria Occ (<OCC) H 03/10/17 22:02 - Hospital Course Hospital Course: HPI (As per admission): Patient is an 81 y/o F with PMHx of DM, HTN, HLD who presents today for syncopal episode. Patient was feeling fine during the day and then became dizzy for about 10-15 minutes while doing the dishes. Patient started to slump toward the ground and lost consciousness for a few seconds but daughter caught her fall. Patient did not hit her head. Daughter said that patient was unconscious for only a few seconds after which she was not confused. She was not incontinent of urine or feces. After the syncopal episode patient had some nausea. Daughter immediately called the ambulance. Patient says this has never happened to her before. In the past few days patient has had a cold and been taking an OTC decongestant and Tylenol. She has a cough with no phlegm and no sore throat. She also admits to nasal congestion. She has had no fevers. Patient also denies headache, shortness of breath, abdominal pain, vomiting, constipation, or diarrhea. Patient denies problems with urinating. Currently patient denies any dizziness and says she is feeling better. Hospital Course: Patient was admitted with the diagnosis of syncope/ vasovagal episode. Patient was admitted to med-surg while on telemetry. During the course of admission, patient has appropriate work-up/diagnostic imaging for syncope. Patient had no acute event during the hospital course. Patient was managed medically with appropriate chemical agents and remained clinically stable. Patient was discharged upon clearance by the medical team Pertinent imaging/Labs: Head CT without contrast: No acute intracranial hemorrhage or suspicious mass effect Chest X-ray: No active disease Echo: Normal LV systolic dysfunction and mild aortic regurgitation. Ejection fraction is within normal range Carotid doppler: Right: 16-44% stenosis of the right proximal ICA with minimal hemodynamic significance Left: 50-60% stenois of the left proximal ICA with mild hemodynamic significance Orthostatic vital signs: Negative This is a brief summary of events. For a complete course, please refer to the medical records Discharge Exam - Head Exam Head Exam: ATRAUMATIC, NORMAL INSPECTION - Eye Exam Eye Exam: EOMI, Normal appearance - ENT Exam ENT Exam: Mucous Membranes Moist - Respiratory Exam Respiratory Exam: Clear to PA & Lateral, NORMAL BREATHING PATTERN - Cardiovascular Exam Cardiovascular Exam: REGULAR RHYTHM, +S1, +S2 - GI/Abdominal Exam GI & Abdominal Exam: Normal Bowel Sounds, Soft. absent: Distended, Firm, Guarding, Tenderness - Extremities Exam Extremities exam: normal inspection - Neurological Exam Neurological exam: Alert, CN II-XII Intact, Oriented x3 - Psychiatric Exam Psychiatric exam: Normal Affect, Normal Mood - Skin Skin Exam: Normal Color Discharge Plan - Follow Up Plan Condition: STABLE Disposition: HOME/ ROUTINE Instructions: Heart Healthy Diet (DC), Syncope (DC), Hypothyroidism (DC), Diabetes Mellitus Type 2 in Adults (GEN), Chronic Hypertension (DC), Low Sodium Diet (DC) Additional Instructions: Please discharge patient home as per Dr. Fiore Please resume all your home medications as prescribed by your PMD Please check your blood pressure before taking your daily hypertensive medications Please follow up with your PMD, Dr. Lau within a week Please talk to your PMD about your hypertensive medications reconcilation Please return to the hospital if symptoms resume or worsen
== END 2017-03-13 15:11 | disposition home or self-care (01) | DRG 312 ==
LOC: C.ER 20:35 → C.9E 23:38 → C.6T 03-11 03:25
PROVIDERS: ADMIT Internal Medicine; ATTEND Internal Medicine
DX: R55 Syncope and collapse (principal); E11.9 Type 2 diabetes mellitus without complications; D72.829 Elevated white blood cell count, unspecified; E78.5 Hyperlipidemia, unspecified; E03.9 Hypothyroidism, unspecified; I10 Essential (primary) hypertension; Z79.4 Long term (current) use of insulin